=== PATIENT | male | born 1955 | race Caucasian/White ===

== ENCOUNTER → 2025-01-27 09:52 | Outpatient (REF) | payer MEDICARE, SELFPAY ==
[2025-01-27 11:35] LABS: % Basophils 0.5 % (0-2); % Eosinophils 0.9 % (0-6); % Immature Granulocytes 0.3 % (0-0.5); % Lymphocytes 26.6 % (20.5-51.1); % Monocytes 6.8 % (1.7-9.3); % Neutrophils 64.9 % (42.2-75.2); Absolute Basophils 0.1 10^3/uL (0-0.2); Absolute Eosinophils 0.1 10^3/uL (0-0.7); Absolute Lymphocytes 2.7 10^3/uL (1.2-3.4); Absolute Monocytes 0.7 10^3/uL (0.1-0.6); Absolute Neutrophils 6.6 10^3/uL (1.4-6.5); Hematocrit 52.5 % (39.0-52.0); Hemoglobin 17.4 g/dL (13.0-18.0); Mean Corp Hgb Conc. 33.1 g/dL (33.0-37.0); Mean Corpuscular Hgb 31.9 pg (27.0-31.0); Mean Corpuscular Volume 96.2 fL (80.0-94.0); Mean Platelet Volume 11.2 fL (7.4-10.4); Nucleated Red Blood Cells % 0 % (-); Platelet Count 237 10^3/uL (130-400); Red Blood Cell Count 5.46 10^6/uL (4.70-6.10); Red Cell Dist. Width 14.1 % (11.5-14.5); White Blood Cell Count 10.2 10^3/uL (4.8-10.8)
[2025-01-27 12:04] LABS: ALT (SGPT) 31 U/L (0-50); AST (SGOT) 24 U/L (17-59); Albumin 4.4 g/dl (3.5-5.0); Alkaline Phosphatase 105 U/L (38-126); Blood Urea Nitrogen 20 mg/dl (9-20); Calcium 10.1 mg/dl (8.4-10.2); Carbon Dioxide 27 mmol/L (22-30); Chloride 108 mmol/L (98-107); Glucose 86 mg/dl (70-99); HDL Cholesterol 49 mg/dl; LDL Cholesterol, Calculated 113 mg/dl; Potassium 4.4 mmol/L (3.5-5.1); Sodium 143 mmol/L (135-145); Total Bilirubin 0.8 mg/dl (0.2-1.3); Total Cholesterol 189 mg/dl (50-199); Total Protein 7.1 g/dl (6.3-8.2); Triglyceride 137 mg/dl (10-149); Very Low Density Lipoprotein 27 mg/dl (0-30); eGFR > 60.00
[2025-01-27 12:30] LABS: TSH Reflex To Free T4 0.85 uIU/ml (0.47-4.68)
[2025-01-27 13:14] LABS: Folate 8.6 ng/ml (2.76-20)
[2025-01-27 15:19] LABS: Vitamin B12 242 pg/ml (239-931)
== END ==
LOC: HWLAB 09:52
PROVIDERS: ATTENDING PHYSICIAN Nurse Practitioner Family
DX: Z09 Encounter for follow-up examination after completed treatment for conditions other than malignant neoplasm (principal); E53.8 Deficiency of other specified B group vitamins; E83.51 Hypocalcemia; D75.1 Secondary polycythemia; R77.9 Abnormality of plasma protein, unspecified; R94.4 Abnormal results of kidney function studies; I65.23 Occlusion and stenosis of bilateral carotid arteries; S22.079D Unspecified fracture of T9-T10 vertebra, subsequent encounter for fracture with routine healing
CPT/HCPCS: 36415; 80053; 80061; 82607; 82746; 84443; 85025

== ENCOUNTER → 2025-06-08 10:21 | Outpatient (REF) | payer MEDICARE, SELFPAY ==
[2025-06-08 12:28] LABS: Hematocrit 41.2 % (39.0-52.0); Hemoglobin 13.2 g/dL (13.0-18.0); Mean Corp Hgb Conc. 32.0 g/dL (33.0-37.0); Mean Corpuscular Volume 92.6 fL (80.0-94.0); Nucleated Red Blood Cells % 0 % (-); Platelet Count 241 10^3/uL (130-400); Red Cell Dist. Width 13.8 % (11.5-14.5)
[2025-06-08 12:45] LABS: ALT (SGPT) 19 U/L (0-50); AST (SGOT) 19 U/L (17-59); Albumin 4.5 g/dl (3.5-5.0); Alkaline Phosphatase 69 U/L (38-126); Blood Urea Nitrogen 21 mg/dl (9-20); Calcium 10.0 mg/dl (8.4-10.2); Carbon Dioxide 31 mmol/L (22-30); Chloride 103 mmol/L (98-107); Glucose 87 mg/dl (70-99); HDL Cholesterol 54 mg/dl; LDL Cholesterol, Calculated 103 mg/dl; Sodium 140 mmol/L (135-145); Total Protein 7.1 g/dl (6.3-8.2); Very Low Density Lipoprotein 30 mg/dl (0-30); eGFR > 60.00
[2025-06-08 12:50] LABS: Potassium 4.3 mmol/L (3.5-5.1)
== END ==
LOC: HWLAB 10:21
PROVIDERS: ATTENDING PHYSICIAN Nurse Practitioner Family
DX: F03.B11 Unspecified dementia, moderate, with agitation (principal); R77.9 Abnormality of plasma protein, unspecified; I65.23 Occlusion and stenosis of bilateral carotid arteries; S22.079D Unspecified fracture of T9-T10 vertebra, subsequent encounter for fracture with routine healing; F33.1 Major depressive disorder, recurrent, moderate; I10 Essential (primary) hypertension
CPT/HCPCS: 36415; 80053; 80061; 84443; 85025